=== PATIENT | female | born 1945 | race Caucasian/White ===

== ENCOUNTER → 2016-04-18 | Day surgery (SDC) | payer OTHER ==
[~2016-04-18] MED LIST: DIPRIVAN 1% ONE; HEPARIN ONE; NS 250 ML ONE; PHENERGAN INJ ONE; XYLOCAINE 1% ONE
[2016-04-18 17:06] VITALS: BP 145/99
--- NOTE | 2016-04-18 17:45 | OPERATIVE NOTE ---
PROCEDURE DATE: PREOPERATIVE DIAGNOSIS: Right breast cancer requiring adjuvant chemotherapy. POSTOPERATIVE DIAGNOSIS: Right breast cancer requiring adjuvant chemotherapy. PRINCIPAL PROCEDURE: Right internal jugular Port-A-Cath using ultrasound and fluoroscopy. SURGEON: Stefania Mitchell MD. ANESTHESIA: General using LMA and local anesthetic. ESTIMATED BLOOD LOSS: 25 mL. DRAINS: None. INDICATIONS: Ms. Valerie Walker is a 71-year-old white female who I have performed a right modified radical mastectomy for right breast cancer with positive lymph nodes. She will need adjuvant chemotherapy and we were asked to place access. DESCRIPTION OF PROCEDURE: The patient was brought to the operating room, placed supine, received general anesthesia, and was ventilated. Her right neck, shoulder, and anterior chest were prepped and draped within the sterile field. We used local anesthetic at our incision sites. We chose to use the right side despite her recent mastectomy. Initially, we cut down on the right external jugular vein but it was too small to use. So we used ultrasound guidance to identify the right internal jugular vein and we placed an 18-gauge needle with ultrasound guidance into the internal jugular vein. A guidewire was placed through this needle into the right side of the heart. We checked the position of the guidewire using fluoroscopy. The needle was removed. We made a counter incision on the anterior right chest and a subcutaneous pocket was created for the port using cautery and blunt finger dissection. We used a blunt tunneler and a 9.6 Urdu silicone catheter and we tunneled this catheter from the chest incision to the neck incision. Over the guidewire we placed a dilator and sheath. The dilator and guidewire were removed and through this sheath, we placed the distal end of our 9.6 Urdu silicone catheter and directed it into the superior vena cava with the help of fluoroscopy. The other end of the catheter was hooked to the port. The port was secured in its pocket with two 2-0 silk stitches. The catheter was functioning well and we flushed it with heparin and saline. We closed our wounds in layers. First layer was 3-0 popoff Vicryl stitches to close the subcutaneous tissue. The skin was closed with 4-0 Monocryl subcuticular stitches. Steri-Strips were applied. She tolerated the procedure well with plans for her go to the recovery room and then be discharged home later today under the care of her with followup in our outpatient offices.
== END | disposition home or self-care (01) ==
LOC: OR 12:00
PROVIDERS: ATTEND Surgery
DX: C50.911 Malignant neoplasm of unspecified site of right female breast (principal); M19.90 Unspecified osteoarthritis, unspecified site; J45.909 Unspecified asthma, uncomplicated; C77.9 Secondary and unspecified malignant neoplasm of lymph node, unspecified; F32.9 Major depressive disorder, single episode, unspecified; E78.00 Pure hypercholesterolemia, unspecified; I10 Essential (primary) hypertension; E89.0 Postprocedural hypothyroidism; K21.9 Gastro-esophageal reflux disease without esophagitis; Z80.3 Family history of malignant neoplasm of breast; Z82.49 Family history of ischemic heart disease and other diseases of the circulatory system; Z82.3 Family history of stroke; Z79.899 Other long term (current) drug therapy; Z79.1 Long term (current) use of non-steroidal anti-inflammatories (NSAID); Z79.82 Long term (current) use of aspirin
CPT/HCPCS: 77001; C1788; J0690; J1100; J1644; J2405; J2550; J7050; J7120

== ENCOUNTER 2018-07-08 10:14 | Observation (INO) ==
--- NOTE | 2018-07-02 08:23 | EKG Report ---
Test Performed on : 07/02/2018 08:01:28 AM Test Reason : PAT Blood Pressure : / mmHG Vent. Rate : 073 BPM Atrial Rate : 073 BPM P-R Int : 162 ms QRS Dur : 086 ms QT Int : 392 ms P-R-T Axes : 055 053 085 degrees QTc Int : 431 ms Normal sinus rhythm. Normal ECG When compared with ECG of 13-MAY-2017 11:14, No significant change was found Confirmed by Devon OLIVER, Anderson Lagos ([id number]) on 07/03/2018 11:38:32 AM
[2018-07-02 09:04] LABS: URINE SOURCE CLEAN CATCH
[2018-07-02 09:14] LABS: BASO# 0.03 X1000 (0.0-0.2); EOS# 0.03 X1000 (0.0-0.7); HEMATOCRIT 42.2 % (37.0-47.0); HEMOGLOBIN 13.7 g/dL (12.0-16.0); LYMPH# 0.81 X1000 (1.2-3.4); LYMPH% 26.3 % (20.5-51.1); MCH 32.5 PG (27-31); MCHC 32.5 g/dL (33-37); MONO# 0.42 X1000 (0.11-0.59); MONO% 13.6 % (1.7-9.3); MPV 9.2 FL (7.4-10.4); NEUT# 1.79 X1000 (1.4-6.5); NEUT% 58.1 % (42.2-75.2); PLT 225 X1000 (130-400); RBC 4.22 XMIL (4.2-5.4); RDW 14.4 % (11.5-14.5); WBC 3.08 X1000 (4.8-10.8)
[2018-07-02 09:15] LABS: BILIRUBIN URINE NEGATIVE (NEGATIVE); BLOOD URINE NEGATIVE (NEGATIVE); COLOR YELLOW; GLUCOSE URINE NEGATIVE (NEGATIVE); KETONE URINE NEGATIVE (NEGATIVE); LEUKOCYTES URINE NEGATIVE (NEGATIVE); NITRITE URINE NEGATIVE (NEGATIVE); PROTEIN URINE TRACE mg/dL (NEGATIVE); SP GRAVITY URINE 1.026; TURBIDITY URINE CLEAR (CLEAR); UROBILINOGEN URINE NORMAL (NORMAL)
[2018-07-02 09:17] LABS: UR EPITHELIAL CELLS <10 /HPF (<10); URINE BACTERIA NEGATIVE /HPF; URINE RBC <10 /HPF (<10); URINE WBC <10 /HPF (<10)
[2018-07-02 09:21] LABS: INR 0.86; PROTIME 12.4 Seconds (11.0-16.0)
[2018-07-02 09:22] LABS: PTT 25.5 Seconds (22.3-41.8)
[2018-07-02 10:33] LABS: AGAP 13; BUN 18 mg/dL (8-22); CALCIUM 9.3 mg/dL (8.8-10.2); CHLORIDE 102 mmol/L (98-107); COSMO 285; CREATININE 0.8 mg/dL (0.5-0.9); ESTIMATED GFR > 60; GLUCOSE 97 mg/dL (70-104); POTASSIUM 4.2 mmol/L (3.5-5.1); SODIUM 142 mmol/L (136-145); TCO2 27 mmol/L (25-35)
[2018-07-08] MEDS ORDERED: CELEBREX ONE (10:27)
[2018-07-08] MEDS ORDERED: REGLAN ONE (10:27)
[2018-07-08] MEDS ORDERED: LYRICA ONE (10:27)
[2018-07-08] MEDS ORDERED: COLACE ONE (10:27)
[2018-07-08] MEDS ORDERED: LR 1,000 ML ONE (10:28)
[2018-07-08] MEDS ORDERED: PEPCID ONE ×2 (10:28)
[2018-07-08] MEDS ORDERED: KEFZOL 1 GM/D5W 2 GM/100 ML IVPB ONE (10:28)
[2018-07-08] MEDS ORDERED: DECADRON ONE ×2 (10:41→12:54)
[2018-07-08] MEDS ORDERED: ROBINUL ONE (10:41)
[2018-07-08] MEDS ORDERED: ZOFRAN ONE (10:41)
[2018-07-08] MEDS ORDERED: DIPRIVAN 1% ONE ×2 (10:41→11:54)
[2018-07-08] MEDS ORDERED: FENTANYL ONE (10:42)
[2018-07-08] MEDS ORDERED: OFIRMEV 1000 MG/ISOTONIC SOLN 1,000 MG/100 ML BOTTLE ONE (11:59)
[2018-07-08] MEDS ORDERED: DURAMORPH ONE (12:09)
[2018-07-08] MEDS ORDERED: MARCAINE 0.25% PF ONE (12:10)
[2018-07-08] MEDS ORDERED: SODIUM CHLORIDE 0.9% ONE (12:10)
[2018-07-08] MEDS ORDERED: CYKLOKAPRON 1,000 MG/NS 1,000 MG/100 ML IVPB ONE (12:10)
[2018-07-08] MEDS ORDERED: VANCOMYCIN ONE (12:10)
[2018-07-08] MEDS ORDERED: TORADOL ONE (12:10)
[2018-07-08] MEDS ORDERED: NEOSPORIN G.U. IRRIGANT ONE (12:11)
[2018-07-08] MEDS ORDERED: EXPAREL 1.3% ONE (12:11)
[2018-07-08 13:42] LABS: URINE SOURCE CATH
[2018-07-08 13:51] LABS: BILIRUBIN URINE NEGATIVE (NEGATIVE); BLOOD URINE NEGATIVE (NEGATIVE); COLOR YELLOW; GLUCOSE URINE NEGATIVE (NEGATIVE); KETONE URINE NEGATIVE (NEGATIVE); LEUKOCYTES URINE NEGATIVE (NEGATIVE); NITRITE URINE NEGATIVE (NEGATIVE); PROTEIN URINE NEGATIVE (NEGATIVE); TURBIDITY URINE CLEAR (CLEAR); UROBILINOGEN URINE NORMAL (NORMAL)
[2018-07-08 13:53] LABS: UR EPITHELIAL CELLS <10 /HPF (<10); URINE BACTERIA NEGATIVE /HPF; URINE RBC <10 /HPF (<10); URINE WBC <10 /HPF (<10)
--- NOTE | 2018-07-08 14:12 | OPERATIVE NOTE ---
PROCEDURE DATE: 07/08/2018 PREOPERATIVE DIAGNOSIS: Degenerative joint disease, right knee. POSTOPERATIVE DIAGNOSIS: Degenerative joint disease right knee. PROCEDURE: Right total knee replacement. SURGEON: Souleymane Thompson MD. MORTGAGE LOAN PROCESSOR: HALLE Mares. ANESTHESIA: Spinal. COMPLICATION: None. PROCEDURE IN DETAIL: A 73-year-old female presents for surgical knee replacement. Risks, benefits, and no guarantees were discussed, and she is willing to proceed. She was taken to the operating room and satisfactory anesthesia obtained. The right knee was prepped and draped in usual sterile fashion. A time-out was taken to confirm operative site, procedure, and patient. The leg was wrapped with an Esmarch and tourniquet inflated to 350 mmHg. A midline incision was made over the front of the knee followed by a quad tendon sparing arthrotomy. The patella was everted and resurfaced with freehand technique. The patella was then subluxed laterally and the knee flexed. An intramedullary hole made in the distal femur, and the distal femoral cutting block secured in 5 degrees of valgus. Distal femoral resection was made and the femur sized to a MartManiauy Ansira size 5 femoral implant. The 4 in 1 block was secured and the anterior, posterior, and chamfer cuts sequentially made. Afterwards, a notch was created for posterior stabilized design using the provided notch guide. Any remaining osteophytes were debrided about the femur. A PCL retractor was placed behind the tibia to protect the neurovascular bundle. The tibial cutting block secured using extramedullary alignment. Tibial resection was then made, and the flexion extension gaps checked and noted to be roughly equal with a 5 mm spacer. Afterwards, the tibia was sized to a size 5 tibial tray. A trial reduction was performed with a size 5 tibial tray, a 5 posterior stabilized trial femoral component and good stability with a 5 mm trial insert was achieved. The patella was sized to a 32 medialized dome of the patella. The drill holes were placed for the patella and femoral implants. All trial components removed. The bony surfaces were thoroughly irrigated with pulsatile lavage, and then dried and cement with a gram of vancomycin was utilized to cement in the implants. The size 5 rotating platform tibial tray followed by a 5 narrow right posterior stabilized femoral component, and a 32 medialized dome patella. While the cement cured, the joint capsule was injected with Exparel for pain management. A Hemovac drain was placed and brought out through the lateral retinaculum. The size 5, 5 mm thick polyethylene bearing was then placed into the knee and the knee reduced. Final range of motion was assessed with 0 to 130 degrees and midline patellar tracking. The knee was then irrigated, and then closed in layers with #1 Vicryl in the arthrotomy, 2-0 Vicryl in the subcutaneous, and skin roz on the skin edges. Sterile dressings completed the closure. The patient was recovered from anesthesia, and tourniquet released with good return of capillary blood flow. No intraoperative complications were noted. Instrument count and sponge count was correct at the time of closure. cc: Joe Thompson MD
[2018-07-08] MEDS ORDERED: NS 1,000 ML ONE (14:34)
--- NOTE | 2018-07-08 14:57 | Diag Imaging Result Doc PS360 ---
KNEE 1-2 VIEWS-RIGHT - 07/08/2018 INDICATION: RTKA TECHNIQUE: Two views COMPARISON: None FINDINGS: There has been right total knee arthroplasty. Alignment is anatomic. No hardware fracture or loosening. IMPRESSION: No complication. Electronically signed by Geo Bronson 07/08/2018 2:55 PM
[2018-07-08] MEDS ORDERED: ZOFRAN IV PRN (15:45)
[2018-07-08] MEDS ORDERED: OXY IR PO PRN ×2 (15:45)
[2018-07-08] MEDS ORDERED: MORPHINE IV PRN ×3 (15:45)
[2018-07-08] MEDS ORDERED: NS 1,000 ML IV SCH (15:45)
[2018-07-08] MEDS ORDERED: ZOFRAN ODT PO PRN (15:45)
[2018-07-08] MEDS: ULTRAM PO SCH ×2 (18:17→19:51)
[2018-07-08] MEDS: TYLENOL PO SCH ×2 (18:18→19:51)
[2018-07-08] MEDS: KEFZOL 2 GM/D5W 2 GM/50 ML IVPB IV SCH (19:50)
[2018-07-08] MEDS ORDERED: VENTOLIN HFA INH PRN (20:12)
[2018-07-08] MEDS ORDERED: COLACE PO SCH (21:00)
[2018-07-08] MEDS ORDERED: CELEBREX PO SCH (21:00)
[2018-07-08] MEDS ORDERED: CULTURELLE PO SCH (21:00)
[2018-07-08] MEDS ORDERED: MELATONIN PO SCH (21:00)
[2018-07-08] MEDS ORDERED: CYMBALTA PO SCH (21:00)
[2018-07-08] MEDS ORDERED: TOPROL XL PO SCH (21:00)
[2018-07-08] MEDS ORDERED: PERIDEX MT SCH (21:00)
[2018-07-08] MEDS ORDERED: ARIMIDEX PO SCH (21:00)
[2018-07-08] MEDS ORDERED: CHLORASEPTIC SPRAY MT PRN (22:44)
[2018-07-09] MEDS: TYLENOL PO SCH ×2 (02:24→07:42)
[2018-07-09] MEDS: ULTRAM PO SCH ×4 (02:48→12:44)
[2018-07-09] MEDS: KEFZOL 2 GM/D5W 2 GM/50 ML IVPB IV SCH (03:50)
[2018-07-09 06:30] LABS: HEMATOCRIT 35.2 % (37.0-47.0); HEMOGLOBIN 11.4 g/dL (12.0-16.0)
[2018-07-09] MEDS ORDERED: FLOMAX PO ONE (06:54)
[2018-07-09 06:57] LABS: AGAP 13; BUN 8 mg/dL (8-22); CALCIUM 8.4 mg/dL (8.8-10.2); CHLORIDE 102 mmol/L (98-107); COSMO 280; CREATININE 0.7 mg/dL (0.5-0.9); ESTIMATED GFR > 60; GLUCOSE 173 mg/dL (70-104); POTASSIUM 4.4 mmol/L (3.5-5.1); SODIUM 139 mmol/L (136-145); TCO2 24 mmol/L (25-35)
[2018-07-09] MEDS ORDERED: SYNTHROID PO SCH ×2 (07:00→09:00)
--- NOTE | 2018-07-09 08:05 | ORTHOPAEDICS PROGRESS NOTE ---
DATE: 07/09/2018 SUBJECTIVE DATA: Ms. Agustin is seen on postop day 1 of a right total knee replacement. She reports she is doing well at this time. She reports her pain is a 0/10 at this moment. She reports she has not been up and walking with physical therapy yet. She reports she did have some nausea and is requesting to be sent home with some nausea medication. OBJECTIVE DATA: There is good sensation of the right lower extremity. There are good pedal pulses. There is negative Homans sign. The bandages are clean and dry. The patient can flex her quadriceps muscles without difficulty. The vital signs are stable. ASSESSMENT: Degenerative joint disease of the right knee with total knee arthroplasty. PLAN: We plan on sending Ms. Agustin home with home therapy at this time. We will place her on a prophylactic antibiotic with Bactrim twice daily. We will also give her aspirin twice daily for DVT prophylaxis and [place] 10 for pain. I have given her some Zofran as well for nausea. We will need to see her back in the office in 10 to 14 days for staple removal. Dictated by HALLE Mares for Joe Thompson MD cc: HALLE Mares MD
[2018-07-09 08:08] VITALS: BP 148/69
[2018-07-09] MEDS ORDERED: PRILOSEC PO SCH (09:00)
[2018-07-09] MEDS ORDERED: VITAMIN B-12 PO SCH (09:00)
[2018-07-09] MEDS ORDERED: MIRALAX PO SCH (09:00)
[2018-07-09] MEDS ORDERED: ASPIRIN PO SCH ×2 (09:00→21:00)
[2018-07-09] MEDS ORDERED: PEPCID PO SCH (09:00)
[2018-07-09] MEDS ORDERED: LIPITOR PO SCH (09:00)
[2018-07-09] MEDS ORDERED: PATIENT'S OWN MED PO SCH (09:00)
== END 2018-07-09 13:40 | disposition home or self-care (01) ==
LOC: 4N 10:14 → OR 10:14
PROVIDERS: ADMIT Orthopaedic Surgery Adult Reconstructive Orthopaedic Surgery; ATTEND Orthopaedic Surgery Adult Reconstructive Orthopaedic Surgery
CPT/HCPCS: 73560; 80048; 81001; 85014; 85018; 85025; 85610; 85730; 86850; 86900; 86901; 88305; 88311; 93005; 93010; 94760; 94761; 94799; 97110; 97116; 97162; 97530; A9270; C9290; J0131; J0690; J1100; J1885; J2274; J2275; J2405; J3010; J3370; J7030; J7120; Q9974; S0020; S0028; S0170